=== PATIENT | female | born 1995 | race Two or more races ===

== ENCOUNTER 2020-05-01 14:03 | Outpatient (CLI) | payer OTHER ==
[~2020-05-01] VITALS: Ht 160 cm; Wt 102.1 kg
[2020-05-01 14:27] VITALS: BP 102/67
--- NOTE | 2020-05-01 17:45 | Consultation ---
DATE OF CONSULTATION: 05/01/2020 CONSULTING PHYSICIAN: Jose D Lee MD REASON FOR CONSULTATION: Referral for ERCP and stent removal. HISTORY OF PRESENT ILLNESS: Patient is a 24-year-old female who had initially ERCP x2. Then had a cholecystectomy in July 2019. She still has a retained stent in the common bile duct and was referred for ERCP. PAST MEDICAL HISTORY: Gallstones. PAST SURGICAL HISTORY: Cholecystectomy. MEDICATIONS: control pills. FAMILY HISTORY: Noncontributory. SOCIAL HISTORY: Patient occasionally drinks alcohol, otherwise no other tobacco or IV drug abuse. ALLERGIES: No known drug allergies. REVIEW OF SYSTEMS: Grossly negative. PHYSICAL EXAMINATION: VITAL SIGNS: Temperature 98.1, blood pressure is 102/67, pulse 71, respirations 20. HEENT: Normocephalic, atraumatic. Sclerae anicteric. NECK: Supple. No evidence of obvious lymphadenopathy. CARDIOVASCULAR: Regular rate and rhythm. Plus S1-S2. LUNGS: Clear to auscultation bilaterally. ABDOMEN: Positive bowel sounds. Soft and nontender. No rebound. No guarding. No peritoneal sign. EXTREMITIES: No cyanosis, no clubbing, no edema. ASSESSMENT AND PLAN: This is a 24-year-old female status post ERCP x2 and a retained stent in the common bile duct. Needs ERCP for stent removal. We will schedule when authorization is obtained. Jose D Lee M.D. DR: CRISTELA JOB#: [id number] CC:
== END 2020-05-01 16:03 | disposition home or self-care (01) ==
LOC: PAN 14:03
DX: Z96.89 Presence of other specified functional implants (principal); Z90.49 Acquired absence of other specified parts of digestive tract
CPT/HCPCS: G0463

== ENCOUNTER 2020-06-20 12:43 | Outpatient (CLI) | payer OTHER ==
--- NOTE | 2020-06-20 13:50 | General Progress Note ---
Subjective ROS Limited/Unobtainable: Yes Allergies: Coded Allergies: No Known Allergies (Unverified , 05/01/20) Objective General Appearance: alert EENT: normal ENT inspection Neck: supple Cardiovascular: normal rate Respiratory/Chest: decreased breath sounds Abdomen: normal bowel sounds, non tender, soft Extremities: non-tender Assessment/Plan Assessment/Plan: choledocholithiasis s/p ERCP doing well rtc prn Jose D Lee MD Jun 20, 2020 13:50
== END 2020-06-20 14:43 | disposition home or self-care (01) ==
LOC: PAN 12:43
DX: K80.50 Calculus of bile duct without cholangitis or cholecystitis without obstruction (principal)
CPT/HCPCS: 99212